=== PATIENT | female | born 1990 | race Caucasian/White ===

== ENCOUNTER 2016-06-26 22:35 | Emergency (ER) | payer SELFPAY ==
[~2016-06-26] VITALS: Ht 157.5 cm; Wt 72.0 kg
[~2016-06-26 22:35] MED LIST: CYCL-36 PO; IBUP800 PO; PERC5TAB12 PO
[2016-06-26 22:39] VITALS: BP 135/73; PULSE 110; RESP 18; TEMP 98.1; O2SAT 97
[2016-06-26] MEDS ORDERED: BUPRENORPHIN NALOXON SL (23:13)
[2016-06-26] MEDS ORDERED: ADDE10 PO (23:14)
[2016-06-26 23:16] VITALS: BP 106/67; PULSE 110; RESP 20; O2SAT 98
[2016-06-26] MEDS ORDERED: AZO95TAB (23:23)
[2016-06-26] MEDS ORDERED: SODIUM CHLOR 0.9% 1000 ML INJ 1,000 ML IV SCH (23:26)
[2016-06-26] MEDS ORDERED: cefTRIAXone INJ 1,000 MG in SODIUM CHLORIDE 0.9% INJ 100 ML IV ONE (23:30)
[2016-06-26] MEDS ORDERED: MORPHINE SULFATE 8 MG/ML INJ IV PUSH ONE (23:30)
[2016-06-26] MEDS ORDERED: SODIUM CHLORIDE 0.9% FLUSH 5 ML FLUSH IVF PRN (23:30)
[2016-06-26] MEDS ORDERED: KETOROLAC TROMETHAMINE 30 MG/ML (IVP) VIAL IVP ONE (23:30)
[2016-06-26] MEDS ORDERED: ONDANSETRON HCL 4 MG/2 ML VIAL IVP ONE (23:30)
[2016-06-26 23:46] VITALS: O2SAT 99
[2016-06-27 00:01] LABS: AUTOMATED NEUTROPHIL # 7.3 TH/MM3 (1.8-7.7); BASOPHIL # 0.1 TH/MM3 (0-0.2); BASOPHIL % 0.7 % (0.0-2.0); EOSINOPHIL # 0.3 TH/MM3 (0-0.4); EOSINOPHIL % 2.3 % (0.0-4.0); HEMO FLAGS DIFF FINAL; LYMPH % 30.6 % (9.0-44.0); LYMPHOCYTE # 3.9 TH/MM3 (1.0-4.8); MEAN CELL VOLUME 90.8 FL (80.0-100.0); MEAN CORPUSCULAR HEMOGLOBIN 31.6 PG (27.0-34.0); MEAN CORPUSCULAR HGB CONC 34.8 % (32.0-36.0); MONO % 8.6 % (0.0-8.0); NEUT % 57.8 % (16.0-70.0); PLATELET COUNT 288 TH/MM3 (150-450); RED BLOOD COUNT 4.41 MIL/MM3 (4.00-5.30); RED CELL DISTRIBUTION WIDTH 13.5 % (11.6-17.2); WHITE BLOOD COUNT 12.6 TH/MM3 (4.0-11.0)
[2016-06-27 00:08] LABS: BACTERIA, URINE OCC /hpf; BLOOD, URINE MOD (NEG); GLUCOSE,URINE NEG (NEG); KETONE, URINE NEG (NEG); MUCUS URINE FEW /lpf (OCC); RENAL EPITHELIAL CELLS 3 /hpf; SQUAMOUS EPITHELIAL CELL URINE 1 /hpf (0-5); URINE COLOR YELLOW (YELLW/STRAW)
[2016-06-27 00:09] LABS: COMMENT (UR) CULTURE INDICATED; CULTURE IF INDICATED CULTURE INDICATED; NITRITE,URINE POS (NEG)
[2016-06-27 00:15] LABS: BICARBONATE 24.8 MEQ/L (21.0-32.0); POTASSIUM 3.7 MEQ/L (3.5-5.1)
[2016-06-27] MEDS ORDERED: PROM2SUP RECTAL (00:28)
[2016-06-27] MEDS ORDERED: CIPR-9 PO (00:28)
--- NOTE | 2016-06-27 00:32 | PD ---
HPI Chief Complaint: Back/ Neck Pain or Injury Time Seen by Provider: 23:18 Travel History International Travel<30 days: No Contact w/Intl Traveler<30days: No Traveled to known affect area: No History of Present Illness HPI 25-year-old female complains of pain in the left flank. Constant, severe, onset gradual. Associated symptoms include nausea and vomiting. Numerous episodes of nonbloody diarrhea occurred yesterday. Dysuria and cloudy urine has been observed for 2 days. No similar prior events. Patient took Azo however it did not help. Last menstruation was 3 weeks prior. She is a history of endometriosis and ovarian cysts. She takes Suboxone tablets. She denies any prior history of IV drug abuse. No prior surgical history. PFSH Past Medical History Immune Disorder: Yes (rheumatoid arthritis.) Respiratory: Yes (asthma) Tetanus Vaccination: Unknown Influenza Vaccination: No ?: Not LMP: 3 WKS AGO : 3 Miscarriage: 3 Social History Alcohol Use: No Tobacco Use: Yes Substance Use: Yes (marijuana occasional ) Allergies-Medications (Allergen,Severity, Reaction): Coded Allergies: Codeine (Verified Allergy, Unknown, 06/26/16) Zithromax (Verified Allergy, Unknown, 06/26/16) Reported Meds & Prescriptions Reported Meds & Active Scripts Active Phenergan Supp (Promethazine HCl) 12.5 Mg Supp 12.5 Mg RECTAL Q6H PRN Cipro (Ciprofloxacin HCl) 500 Mg Tab 500 Mg PO BID 7 Days Reported Azo Tabs (Phenazopyridine HCl) 95 Mg Tab Adderall (Amphetamine-Dextroamphetamine) 10 Mg Tab 10 Mg PO BID Avoid late evening doses. Space doses at least 4 to 6 hours if more than once/day dosing. [buprenorphin-naloxon] 8 Mg SL Review of Systems Except as stated in HPI: all other systems reviewed are Neg General / Constitutional: No: Fever Gastrointestinal: Positive: Nausea, Vomiting Genitourinary: Positive: Flank Pain Physical Exam Narrative GENERAL: 25-year-old female mild to moderate distress SKIN: Warm and dry. HEAD: Atraumatic. Normocephalic. EYES: Pupils equal and round. No scleral icterus. No injection or drainage. ENT: No nasal bleeding or discharge. Mucous membranes pink and moist. NECK: Trachea midline. No JVD. CARDIOVASCULAR: Regular rate and rhythm. No murmur appreciated. RESPIRATORY: No accessory muscle use. Clear to auscultation. Breath sounds equal bilaterally. GASTROINTESTINAL: Tenderness to percussion left flank. Abdomen soft. MUSCULOSKELETAL: No obvious deformities. No clubbing. No cyanosis. No edema. NEUROLOGICAL: Awake and alert. No obvious cranial nerve deficits. Motor grossly within normal limits. Normal speech. PSYCHIATRIC: Appropriate mood and affect; insight and judgment normal. Data Data Last Documented VS Vital Signs Date Time Temp Pulse Resp B/P Pulse Ox O2 Delivery O2 Flow Rate FiO2 06/26/16 23:46 99 Room Air 06/26/16 23:16 110 20 106/67 06/26/16 22:39 98.1 Orders Basic Metabolic Panel (Bmp) (06/26/16 23:26) Complete Blood Count With Diff (06/26/16 23:26) Urinalysis - C+S If Indicated (06/26/16 23:26) Iv Access Insert/Monitor (06/26/16 23:26) Oximetry (06/26/16 23:26) Ondansetron Inj (Zofran Inj) (06/26/16 23:30) Sodium Chlor 0.9% 1000 Ml Inj (Ns 1000 M (06/26/16 23:26) Sodium Chloride 0.9% Flush (Ns Flush) (06/26/16 23:30) Ketorolac Inj (Toradol Inj) (06/26/16 23:30) Morphine Inj (Morphine Inj) (06/26/16 23:30) Ed Urine Pregnancytest Poc (06/26/16 23:26) Ceftriaxone Inj (Rocephin Inj) (06/26/16 23:30) Urine Culture (06/26/16 23:45) Ciprofloxacin (Cipro) (06/27/16 00:45) Labs Laboratory Tests Test 06/26/16 23:45 White Blood Count 12.6 TH/MM3 Red Blood Count 4.41 MIL/MM3 Hemoglobin 13.9 GM/DL Hematocrit 40.0 % Mean Corpuscular Volume 90.8 FL Mean Corpuscular Hemoglobin 31.6 PG Mean Corpuscular Hemoglobin 34.8 % Concent Red Cell Distribution Width 13.5 % Platelet Count 288 TH/MM3 Mean Platelet Volume 9.7 FL Neutrophils (%) (Auto) 57.8 % Lymphocytes (%) (Auto) 30.6 % Monocytes (%) (Auto) 8.6 % Eosinophils (%) (Auto) 2.3 % Basophils (%) (Auto) 0.7 % Neutrophils # (Auto) 7.3 TH/MM3 Lymphocytes # (Auto) 3.9 TH/MM3 Monocytes # (Auto) 1.1 TH/MM3 Eosinophils # (Auto) 0.3 TH/MM3 Basophils # (Auto) 0.1 TH/MM3 CBC Comment DIFF FINAL Differential Comment Urine Color YELLOW Urine Turbidity HAZY Urine pH 7.0 Urine Specific [place] 1.010 Urine Protein 30 mg/dL Urine Glucose (UA) NEG mg/dL Urine Ketones NEG mg/dL Urine Occult Blood MOD Urine Nitrite POS Urine Bilirubin NEG Urine Urobilinogen LESS THAN 2.0 MG/DL Urine Leukocyte Esterase LARGE Urine RBC 11 /hpf Urine WBC /hpf Urine WBC Clumps FEW Urine Squamous Epithelial 1 /hpf Cells Urine Renal Epithelial Cells 3 /hpf Urine Bacteria OCC /hpf Urine Mucus FEW /lpf Microscopic Urinalysis Comment CULTURE INDICATED Sodium Level 136 MEQ/L Potassium Level 3.7 MEQ/L Chloride Level 102 MEQ/L Carbon Dioxide Level 24.8 MEQ/L Anion Gap 9 MEQ/L Blood Urea Nitrogen 7 MG/DL Creatinine 0.71 MG/DL Estimat Glomerular Filtration 100 ML/MIN Rate Random Glucose 106 MG/DL Calcium Level 9.2 MG/DL [facility] Medical Decision Making Medical Screen Exam Complete: Yes Emergency Medical Condition: Yes Medical Record Reviewed: Yes Differential Diagnosis Pyelonephritis, impacted stone, uncomplicated cystitis, intrauterine , electrolyte imbalance Narrative Course CBC & BMP Diagram 06/26/16 23:45 UA: positive for UTI Urine : negative At 12:40 AM the patient reports feeling much better. Return precautions discussed. Diagnosis Primary Impression: Pyelonephritis Additional Impression: Vomiting Qualified Code: R11.10 - Non-intractable vomiting, presence of nausea not specified, unspecified vomiting type Referrals: Primary Care Physician 2 days Additional Instructions: You have a choice when it comes to health care, and we are glad that you chose [facility] Hopefully, we have met your expectations on today's visit. You are welcome to return to [facility] at any time, as we are committed to meeting the health care needs of our community. Med/Other Pt SpecificInfo: Prescription(s) given Scripts Promethazine Supp (Phenergan Supp)12.5 Mg Supp12.5 Mg RECTAL Q6H PRN (NAUSEA OR VOMITING) #15 SUPP Ref 0 Prov:Dimitry Al MD 06/27/16 Ciprofloxacin (Cipro)500 Mg [id number] Mg PO BID 7 Days Ref 0 Prov:Dimitry Al MD 06/27/16 Disposition: 01 DISCHARGE HOME Condition: Stable Dimitry Al MD Jun 27, 2016 00:32
[2016-06-27] MEDS ORDERED: CIPROFLOXACIN 500 MG TAB PO ONE (00:45)
== END 2016-06-27 00:43 | disposition home or self-care (01) ==
LOC: NEPC 22:35
DX: N12 Tubulo-interstitial nephritis, not specified as acute or chronic (principal); B96.29 Other Escherichia coli [E. coli] as the cause of diseases classified elsewhere; R11.10 Vomiting, unspecified
CPT/HCPCS: 80048; 81001; 84703; 85025; 87077; 87086; 87186; 96365; 96375; 99284; J0696; J1885; J2270; J2405; J7030

== ENCOUNTER 2017-01-23 10:34 | Emergency (ER) | payer SELFPAY ==
[~2017-01-23] VITALS: Ht 157.5 cm; Wt 71.0 kg
[~2017-01-23 10:34] MED LIST changes: +ADDE10 PO; +AZO95TAB; +BUPRENORPHIN NALOXON SL; +CIPR-9 PO; -CYCL-36 PO; -IBUP800 PO; -PERC5TAB12 PO; +PROM2SUP RECTAL
[2017-01-23 10:38] VITALS: BP 123/61; PULSE 110; RESP 18; RESP 22; TEMP 97.8; O2SAT 100
[2017-01-23] MEDS ORDERED: predniSONE 20 MG TAB PO ONE (11:00)
[2017-01-23] MEDS ORDERED: SUBO8MIS SL ×2 (11:04→11:28)
[2017-01-23] MEDS ORDERED: CLON.5 PO (11:05)
[2017-01-23] MEDS: RESP: ALBUTEROL 2.5 MG/IPRATROPIUM 0.5 MG NEB (SCH) INH ×2 (11:07→11:08)
[2017-01-23] MEDS ORDERED: SODIUM CHLOR 0.9% 1000 ML INJ 1,000 ML IV ONE (11:19)
--- NOTE | 2017-01-23 11:23 | PD ---
HPI Chief Complaint: Cold / Flu Symptoms Time Seen by Provider: 10:53 Travel History International Travel<30 days: No Contact w/Intl Traveler<30days: No Traveled to known affect area: No History of Present Illness HPI 26-year-old female complains of one week of cough. Today she developed dyspnea and wheezing consistent with asthma. She cannot find her inhaler at home. Positive subjective fever reported. No chest pain. Cough is not productive. No nausea vomiting or diarrhea. 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 Space doses at least 4 to 6 hours if more than once/day dosing. Review of Systems Except as stated in HPI: all other systems reviewed are Neg Respiratory: Positive: Cough, Wheezing Physical Exam Narrative GENERAL: 26-year-old female pleasant no acute distress SKIN: Warm and dry. HEAD: Atraumatic. Normocephalic. EYES: Pupils equal and round. No scleral icterus. No injection or drainage. ENT: No nasal bleeding or discharge. Mucous membranes pink and moist. NECK: Trachea midline. No JVD. CARDIOVASCULAR: Regular rhythm. Rate about 90. RESPIRATORY: Coarse wheezing bilaterally. Minimal tachypnea. GASTROINTESTINAL: Abdomen soft, non-tender, nondistended. Hepatic and splenic margins not palpable. MUSCULOSKELETAL: Extremities without clubbing, cyanosis, or edema. No obvious deformities. NEUROLOGICAL: Awake and alert. No obvious cranial nerve deficits. Motor grossly within normal limits. Five out of 5 muscle strength in the arms and legs. Normal speech. PSYCHIATRIC: Appropriate mood and affect; insight and judgment normal. Data Data Last Documented VS Vital Signs Date Time Temp Pulse Resp B/P (MAP) Pulse Ox O2 Delivery O2 Flow Rate FiO2 01/23/17 12:53 82 20 105/66 (79) 98 01/23/17 12:30 Room Air 01/23/17 11:44 2.00 01/23/17 10:38 97.8 Vital signs reviewed, blood pressure 123/62 Orders Orders Albuterol-Ipratropium Neb (Duoneb Neb) (01/23/17 11:00) Prednisone (Deltasone) (01/23/17 11:00) Basic Metabolic Panel (Bmp) (01/23/17 11:19) Complete Blood Count With Diff (01/23/17 11:19) Chest, Single Ap (01/23/17 11:19) Ecg Monitoring (01/23/17 11:19) Iv Access Insert/Monitor (01/23/17 11:19) Oximetry (01/23/17 11:19) Sodium Chloride 0.9% Flush (Ns Flush) (01/23/17 11:30) Sodium Chlor 0.9% 1000 Ml Inj (Ns 1000 M (01/23/17 11:19) Lorazepam Inj (Ativan Inj) (01/23/17 11:30) Albuterol Neb (Albuterol Neb) (01/23/17 12:00) Labs Laboratory Tests Test 01/23/17 11:33 White Blood Count 10.1 TH/MM3 Red Blood Count 4.70 MIL/MM3 Hemoglobin 14.4 GM/DL Hematocrit 43.2 % Mean Corpuscular Volume 91.8 FL Mean Corpuscular Hemoglobin 30.6 PG Mean Corpuscular Hemoglobin Concent 33.3 % Red Cell Distribution Width 12.0 % Platelet Count 312 TH/MM3 Mean Platelet Volume 8.6 FL Neutrophils (%) (Auto) 58.1 % Lymphocytes (%) (Auto) 34.2 % Monocytes (%) (Auto) 4.3 % Eosinophils (%) (Auto) 2.1 % Basophils (%) (Auto) 1.3 % Neutrophils # (Auto) 5.9 TH/MM3 Lymphocytes # (Auto) 3.5 TH/MM3 Monocytes # (Auto) 0.4 TH/MM3 Eosinophils # (Auto) 0.2 TH/MM3 Basophils # (Auto) 0.1 TH/MM3 CBC Comment DIFF FINAL Differential Comment Blood Urea Nitrogen 7 MG/DL Creatinine 0.81 MG/DL Random Glucose 108 MG/DL Calcium Level 9.1 MG/DL Sodium Level 141 MEQ/L Potassium Level 3.5 MEQ/L Chloride Level 105 MEQ/L Carbon Dioxide Level 26.3 MEQ/L Anion Gap 10 MEQ/L Estimat Glomerular Filtration Rate 85 ML/MIN MDM Medical Decision Making Medical Screen Exam Complete: Yes Emergency Medical Condition: Yes Medical Record Reviewed: Yes Differential Diagnosis Asthma exacerbation, pneumonia, anxiety attack, bronchitis Narrative Course Patient became very anxious at approximately 11:30 AM. She reported the sensation as if she were going to lose consciousness. IV fluids started. Cardiopulmonary monitoring started oxygen started blood work sent. CBC & BMP Diagram 01/23/17 11:33 Calcium Level 9.1 Last 24 hours Impressions Chest X-Ray 01/23/17 1119 Signed Impressions: Service Date/Time: , January 23, 2017 11:36 - CONCLUSION: No acute disease. Sylvain Chandler MD After three duonebs pt reports marginal improvement. Three additional albuterol nebs ordered. Reassessment at 1245pm: pt reports feeling much better and feeling hungry. Prednisone script, albuterol inhaler. Return precautions discussed. Diagnosis Primary Impression: Asthma Qualified Codes: J45.901 - Unspecified asthma with (acute) exacerbation Additional Impression: Cough variant asthma Referrals: Primary Care Physician 2 days Additional Instructions: You have a choice when it comes to health care, and we are glad that you chose [facility]. Hopefully, we have met your expectations on today's visit. You are welcome to return to [facility] at any time, as we are committed to meeting the health care needs of our community. Med/Other Pt SpecificInfo: Prescription(s) given Scripts Albuterol 18 GM Inh (Ventolin Hfa 18 GM Inh) 90 Mcg/Act Aer 2 PUFF INH Q4H Y for SHORTNESS OF BREATH, #1 INHALER 0 Refills Prov: Dimitry Al MD 01/23/17 Prednisone (Prednisone) 20 Mg Tab 40 MG PO DAILY for 4 Days, #8 TAB 0 Refills Take 40 mg (2 tablets) daily for 5 days Prov: Dimitry Al MD 01/23/17 Disposition: 01 DISCHARGE HOME Condition: Stable Dimitry Al MD Jan 23, 2017 11:23
[2017-01-23 11:30] VITALS: BP 95/65; PULSE 74; RESP 20; O2SAT 100
[2017-01-23] MEDS ORDERED: SODIUM CHLORIDE 0.9% FLUSH 10 ML FLUSH IVF PRN (11:30)
[2017-01-23] MEDS ORDERED: LORazepam 2 MG/ML VIAL IV PUSH ONE (11:30)
[2017-01-23 11:44] VITALS: O2SAT 100
[2017-01-23 11:45] LABS: AUTOMATED NEUTROPHIL # 5.9 TH/MM3 (1.8-7.7); BASOPHIL # 0.1 TH/MM3 (0-0.2); BASOPHIL % 1.3 % (0.0-2.0); EOSINOPHIL # 0.2 TH/MM3 (0-0.4); EOSINOPHIL % 2.1 % (0.0-4.0); HEMATOCRIT 43.2 % (35.0-46.0); LYMPH % 34.2 % (9.0-44.0); LYMPHOCYTE # 3.5 TH/MM3 (1.0-4.8); MEAN CELL VOLUME 91.8 FL (80.0-100.0); MEAN CORPUSCULAR HEMOGLOBIN 30.6 PG (27.0-34.0); MEAN CORPUSCULAR HGB CONC 33.3 % (32.0-36.0); MONO % 4.3 % (0.0-8.0); NEUT % 58.1 % (16.0-70.0); PLATELET COUNT 312 TH/MM3 (150-450); WHITE BLOOD COUNT 10.1 TH/MM3 (4.0-11.0)
[2017-01-23 11:46] LABS: HEMO FLAGS DIFF FINAL
[2017-01-23] MEDS: RESP: ALBUTEROL 2.5 MG/3 ML NEB (SCH) INH ×2 (11:56→11:57)
[2017-01-23 11:57] LABS: POTASSIUM 3.5 MEQ/L (3.5-5.1)
[2017-01-23 12:00] LABS: BICARBONATE 26.3 MEQ/L (21.0-32.0)
--- NOTE | 2017-01-23 12:01 | RADRPT ---
EXAM DATE/TIME: 01/23/2017 11:36 [facility] COMPARISON: No previous studies available for comparison. INDICATIONS : Fever, short of breath, flu like symptoms. MEDICAL HISTORY : Rheumatoid arthritis. Asthma. SURGICAL HISTORY : None ENCOUNTER: Initial ACUITY: 2 days PAIN SCORE: 0/10 LOCATION: chest FINDINGS: A single view of the chest demonstrates the lungs to be symmetrically aerated without evidence of mas s, infiltrate or effusion. The cardiomediastinal contours are unremarkable. Osseous structures are intact. CONCLUSION: No acute disease. Sylvain Chandler MD on January 23, 2017 at 11:59 Board Certified Radiologist. This report was verified electronically.
[2017-01-23 12:30] VITALS: BP 107/59; PULSE 81; RESP 18; O2SAT 98
[2017-01-23] MEDS ORDERED: PRED20 PO (12:46)
[2017-01-23] MEDS ORDERED: VENTAER INH (12:48)
[2017-01-23 12:53] VITALS: BP 105/66
== END 2017-01-23 13:04 | disposition home or self-care (01) ==
LOC: PHED 10:34
DX: J45.901 Unspecified asthma with (acute) exacerbation (principal); J45.991 Cough variant asthma
CPT/HCPCS: 71010; 80048; 85025; 94640; 94664; 96361; 96374; 99284; J2060; J7030; J7512; J7613

== ENCOUNTER 2017-05-03 10:47 | Emergency (ER) | payer OTHER ==
[~2017-05-03] VITALS: Ht 157.5 cm; Wt 78.0 kg
[~2017-05-03 10:47] MED LIST changes: -AZO95TAB; -BUPRENORPHIN NALOXON SL; -CIPR-9 PO; +CLON.5 PO; +PRED20 PO; -PROM2SUP RECTAL; +SUBO8MIS SL; +VENTAER INH
[2017-05-03 10:53] VITALS: BP 141/67; TEMP 98.2; O2SAT 98
--- NOTE | 2017-05-03 11:12 | PD ---
HPI Chief Complaint: Injury Time Seen by Provider: 11:00 Travel History International Travel<30 days: No Contact w/Intl Traveler<30days: No Traveled to known affect area: No History of Present Illness HPI 26-year-old female presents to emergency department with right ankle and knee pain after a misstep while walking down her stairs yesterday. Patient states that she was walking down her stairs, missed a step, and inverted her ankle. 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 She came home, she noticed that the ankle was very swollen and had increased pain. Pain increases with weightbearing and decreases with rest. In addition, she said her knee popped out of place and has had swelling ever since. States the pain increases with weightbearing, decreases with rest. Patient was unable to describe the incident completely but says it is happened before. Denies radiation of pain. Denies numbness or tingling. She is currently taking Suboxone as a part of rehabilitation. 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 Avoid other antiinflammatories with this medication. Reported Suboxone Sublingual Film (Buprenorphine-Naloxone Sublingual Film) 8-2 Mg Film 1 Film SL BID Unique ID number required: Klonopin (Clonazepam) 0.5 Mg Tab 0.5 Mg PO HS PRN Review of Systems Except as stated in HPI: all other systems reviewed are Neg Physical Exam Narrative GENERAL: Well-nourished, well-developed patient. SKIN: Focused skin assessment warm/dry. HEAD: Normocephalic. EYES: No scleral icterus. No injection or drainage. NECK: Supple, trachea midline. No JVD or lymphadenopathy. CARDIOVASCULAR: Regular rate and rhythm without murmurs, gallops, or rubs. RESPIRATORY: Breath sounds equal bilaterally. No accessory muscle use. GASTROINTESTINAL: Abdomen soft, non-tender, nondistended. MUSCULOSKELETAL: No cyanosis, or edema. Right knee Right ankle and foot BACK: Nontender without obvious deformity. No CVA tenderness. Data Data Last Documented VS Vital Signs Date Time Temp Pulse Resp B/P (MAP) Pulse Ox O2 Delivery O2 Flow Rate FiO2 05/03/17 10:53 98.2 102 16 141/67 (91) 98 Orders Orders Knee, Complete (4vws) (05/03/17 ) Ankle, Complete ([id number]) (05/03/17 ) Foot, Limited (2vws) (05/03/17 ) Support Splint (05/03/17 12:07) Ed Discharge Order (05/03/17 12:07) Crutches (05/03/17 12:10) MDM Medical Decision Making Medical Screen Exam Complete: Yes Emergency Medical Condition: Yes Differential Diagnosis Right ankle sprain, fracture, contusion Narrative Course 26-year-old female presents to emergency department with right ankle and knee pain after a misstep while walking down her stairs yesterday. Patient states that she was walking down her stairs, missed a step, and inverted her ankle. 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 She came home, she noticed that the ankle was very swollen and had increased pain. Pain increases with weightbearing and decreases with rest. In addition, she said her knee popped out of place and has had swelling ever since. States the pain increases with weightbearing, decreases with rest. Patient was unable to describe the incident completely but says it is happened before. Denies radiation of pain. Denies numbness or tingling. She is currently taking Suboxone as a part of rehabilitation. Vital signs stable. Last Impressions Knee X-Ray 05/03/17 0000 Signed Impressions: Service Date/Time: Wednesday, May 03, 2017 11:23 - CONCLUSION: No acute disease. Walter Hines MD Foot X-Ray 05/03/17 0000 Signed Impressions: Service Date/Time: Wednesday, May 03, 2017 11:21 - CONCLUSION: No acute disease. Walter Hines MD Ankle X-Ray 05/03/17 0000 Signed Impressions: Service Date/Time: Wednesday, May 03, 2017 11:18 - CONCLUSION: Suspected chronic change of the talus as described above. The lack of a joint effusion or soft tissue swelling suggests this is likely from prior injury. This can be correlated clinically. Walter Hines MD Advised follow-up with orthopedist or podiatry for further evaluation and treatment. Return to primary care physician within 2-3 days. Advised to use rice formula for symptomatic relief. Return to the ED for persistent symptoms. Diagnosis Primary Impression: Knee sprain Qualified Codes: S83.91XA - Sprain of unspecified site of right knee, initial encounter Additional Impressions: Ankle sprain Qualified Codes: S93.491A - Sprain of other ligament of right ankle, initial encounter Foot contusion Qualified Codes: S90.31XA - Contusion of right foot, initial encounter Referrals: Orthopedist Primary Care Physician Departure Forms: Tests/Procedures, Work Release Enter return to work date: May 06, 2017 Additional Instructions: Use ice or heat for symptom relief. Elevate the joint above the heart to reduce swelling. You may use compression with Austin wrap or similar to reduce swelling. If symptoms persist or worsen, return to the emergency department. Follow up with your primary care physician within 2 days. Scripts Ibuprofen (Ibuprofen) 800 Mg Tab 800 MG PO TID for Arthritis Pain for 3 Days, TAB 0 Refills Take with food. Avoid other antiinflammatories with this medication. Prov: Swati Garza 05/03/17 Disposition: 01 DISCHARGE HOME Condition: Stable Swati Garza May 03, 2017 11:12
--- NOTE | 2017-05-03 11:41 | RADRPT ---
EXAM DATE/TIME: 05/03/2017 11:23 [facility] COMPARISON: KNEE RIGHT COMPLETE (4VWS), December 05, 2015, 17:54. INDICATIONS : Fell on stairs MEDICAL HISTORY : None. SURGICAL HISTORY : None. ENCOUNTER: Initial ACUITY: 3 days PAIN SCORE: 6/10 LOCATION: Right knee FINDINGS: Four view examination of the right knee demonstrates no evidence of fracture or dislocation. Bony mi neralization is normal. The articular surfaces are intact. The suprapatellar soft tissues have a no rmal configuration. CONCLUSION: No acute disease. Walter Hines MD on May 03, 2017 at 11:39 Board Certified Radiologist. This report was verified electronically.
--- NOTE | 2017-05-03 11:42 | RADRPT ---
EXAM DATE/TIME: 05/03/2017 11:21 [facility] COMPARISON: No previous studies available for comparison. INDICATIONS : Fell on stairs MEDICAL HISTORY : None. SURGICAL HISTORY : None. ENCOUNTER: Initial ACUITY: 3 days PAIN SCORE: 6/10 LOCATION: Right foot FINDINGS: Two view examination of the right foot demonstrates no soft tissue swelling, dislocation, or fracture . The calcaneus is intact. Bony mineralization is normal. CONCLUSION: No acute disease. Walter Hines MD on May 03, 2017 at 11:39 Board Certified Radiologist. This report was verified electronically.
--- NOTE | 2017-05-03 11:47 | RADRPT ---
EXAM DATE/TIME: 05/03/2017 11:18 [facility] COMPARISON: No previous studies available for comparison. INDICATIONS : Fell on stairs MEDICAL HISTORY : None. SURGICAL HISTORY : None. 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 There some adjacent cystic change seen lateral and inferior to t he area of suspected osteochondritis dissecans. Soft tissue swelling is not seen. A definite ankle ef fusion is not seen. There is cystic change of the posterior distal tibia. There some spurring at the anterior body of the talus. 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 CONCLUSION: Suspected chronic change of the talus as described above. The lack of a joint effusion or soft tissue swelling suggests this is likely from prior injury. This can be correlated clinically. Walter Hines MD on May 03, 2017 at 11:40 Board Certified Radiologist. This report was verified electronically.
[2017-05-03] MEDS ORDERED: IBUP1TAB7 PO (12:06)
== END 2017-05-03 12:25 | disposition home or self-care (01) ==
LOC: PHEFT 10:47
DX: S83.91XA Sprain of unspecified site of right knee, initial encounter (principal); S93.491A Sprain of other ligament of right ankle, initial encounter; S90.31XA Contusion of right foot, initial encounter; F90.9 Attention-deficit hyperactivity disorder, unspecified type; J45.909 Unspecified asthma, uncomplicated; M06.9 Rheumatoid arthritis, unspecified; F17.200 Nicotine dependence, unspecified, uncomplicated; W10.9XXA Fall (on) (from) unspecified stairs and steps, initial encounter; Z79.899 Other long term (current) drug therapy
CPT/HCPCS: 73564; 73610; 73620; 99283; E0113

== ENCOUNTER 2017-08-16 19:27 | Emergency (ER) | payer OTHER ==
[~2017-08-16] VITALS: Ht 160 cm; Wt 78.0 kg
[~2017-08-16 19:27] MED LIST changes: -ADDE10 PO; +IBUP1TAB7 PO; -PRED20 PO; -VENTAER INH
[2017-08-16 19:44] VITALS: BP 109/84; PULSE 117; RESP 20; TEMP 97.9; O2SAT 99
[2017-08-16] MEDS ORDERED: KETOROLAC TROMETHAMINE 60 MG/2 ML (IM) VIAL IM ONE (20:15)
--- NOTE | 2017-08-16 20:30 | RADRPT ---
EXAM DATE/TIME: 08/16/2017 20:10 [facility] COMPARISON: No previous studies available for comparison. INDICATIONS : Trauma to ankle. MEDICAL HISTORY : None. SURGICAL HISTORY : None. ENCOUNTER: Initial ACUITY: 1 day PAIN SCORE: 10/10 LOCATION: Right ankle FINDINGS: No acute fracture or subluxation seen of the right ankle. There is slight lateral soft tissue swellin g. Patient has a chronic osteochondral defect of the medial corner of the talar dome. There is an approx imately 7 mm chronic, potentially loose intra-articular osteochondral fragment. CONCLUSION: No acute fracture or subluxation of the right ankle. 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 Walter Gonzalez MD on August 16, 2017 at 20:27 Board Certified Radiologist. This report was verified electronically.
--- NOTE | 2017-08-16 20:32 | RADRPT ---
EXAM DATE/TIME: 08/16/2017 20:10 [facility] COMPARISON: ANKLE RIGHT COMPLETE ([id number]), August 16, 2017, 20:10. ANKLE RIGHT COMPLETE ([id number]), May 03, 2017, 11:18. INDICATIONS : Trauma to foot. MEDICAL HISTORY : None. SURGICAL HISTORY : None. ENCOUNTER: Initial ACUITY: 1 day PAIN SCORE: 10/10 LOCATION: Right foot FINDINGS: Two view examination of the right foot demonstrates no soft tissue swelling, dislocation, or fracture . The calcaneus is intact. Bony mineralization is normal. CONCLUSION: No acute fracture of the right foot.. 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 Walter Gonzalez MD on August 16, 2017 at 20:29 Board Certified Radiologist. This report was verified electronically.
[2017-08-16] MEDS ORDERED: IBUP1TAB7 PO (20:43)
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
== END 2017-08-16 21:06 | disposition home or self-care (01) ==
LOC: PHEFT 19:27
DX: S93.401A Sprain of unspecified ligament of right ankle, initial encounter (principal); F90.9 Attention-deficit hyperactivity disorder, unspecified type; J45.909 Unspecified asthma, uncomplicated; M06.9 Rheumatoid arthritis, unspecified; F17.210 Nicotine dependence, cigarettes, uncomplicated; Z88.5 Allergy status to narcotic agent; W50.0XXA Accidental hit or strike by another person, initial encounter
CPT/HCPCS: 73610; 73620; 99283; E0113; J1885